=== PATIENT | male | born 1980 | race Two or more races ===

== ENCOUNTER 2021-08-27 09:09 | Outpatient (REF) | payer OTHER, SELFPAY ==
[2021-08-27 10:09] LABS: Estimated Average Glucose 105 mg/dL; Hemoglobin A1c % 5.3 %
[2021-08-27 10:15] LABS: Hematocrit 42.5 % (42.0-52.0); Hemoglobin 13.6 g/dl (14.0-18.0); Mean Corpuscular Hemoglobin 27.2 pg (27.0-33.0); Mean Platelet Volume 11.4 fL (9.4-12.4); Platelet Count 222 X10*3/uL (160-400); Red Cell Distribution Width 13.1 % (11.0-16.0); White Blood Count 5.9 X10*3/uL (4.8-10.8)
[2021-08-27 10:27] LABS: Alanine Aminotransferase 78 U/L (0-40); Albumin Level 4.4 g/dL (3.5-5.0); Alkaline Phosphatase 75 U/L (39-117); Anion Gap 10 (12-20); Aspartate Amino Transferase 32 U/L (5-37); Bilirubin Total 0.9 mg/dL (0.0-1.0); Blood Urea Nitrogen 13 mg/dL (9-16); Calcium 9.6 mg/dL (8.4-10.2); Carbon Dioxide 25 mmol/L (22-29); Chloride 109 mmol/L (96-108); Cholesterol 172 mg/dL; Estimated Glomerular Filt Rate > 60; Glucose Fasting 90 mg/dL (60-99); HDL Cholesterol 55 mg/dL; Iron 98 mcg/dL (45-160); LDL Cholesterol Calculated 108 mg/dl; Percent Iron Saturation 37 % (15-50); Potassium 4.2 mmol/L (3.3-5.1); Sodium 140 mmol/L (135-145); Total Iron Binding Capacity 263 mcg/dL (228-428); Total Protein 7.2 g/dL (6.5-8.0); Triglycerides 48 mg/dL; Unsaturated Iron Binding 165 ug/dL
[2021-08-27 10:51] LABS: TSH reflex Free T4 0.89 uIU/mL (0.32-4.0)
[2021-08-27 11:54] LABS: Appearance Urine CLEAR; Color Urine YELLOW; Glucose Urine UA NEG (NEG); Leukocyte Esterase Urine NEG (NEG); Nitrite Urine NEG (NEG); PH 5.5 (5.0-8.0); Specific Gravity - Urine >= 1.030 (1.005-1.025); UACC Culture Trigger NO; Urine Blood TRACE (NEG); Urine Ketones NEG (NEG); Urine Protein NEG (NEG-TRACE)
[2021-08-27 12:34] LABS: RBC Urine 0-2 /HPF (0); WBC Urine 0 /HPF (0-4)
[2021-08-27 12:35] LABS: Mucus Urine TRACE /LPF; Squamous Epithelial Cell Urine TRACE /LPF
== END 2021-08-27 09:10 | disposition home or self-care (01) ==
LOC: HO.LAB 09:09
PROVIDERS: PCP Physician Assistant; Visit Provider Physician Assistant
DX: R30.0 Dysuria (principal); R31.29 Other microscopic hematuria; D50.9 Iron deficiency anemia, unspecified; R53.83 Other fatigue; Z13.1 Encounter for screening for diabetes mellitus; Z13.220 Encounter for screening for lipoid disorders; Z13.29 Encounter for screening for other suspected endocrine disorder
CPT/HCPCS: 36415; 80053; 80061; 81001; 82306; 83036; 83540; 84443; 85027

== ENCOUNTER 2022-10-14 09:09 | Outpatient (REF) | payer OTHER, SELFPAY ==
[2022-10-14 10:03] LABS: Appearance Urine Turbid; Color Urine Yellow; Glucose Urine UA Negative (Negative); Leukocyte Esterase Urine Negative (Negative); Nitrite Urine Negative (Negative); Specific Gravity - Urine >= 1.030 (1.005-1.025); Urine Blood Negative (Negative); Urine Ketones Negative (Negative); Urine Protein Negative (Neg-Trace)
[2022-10-14 10:37] LABS: Hematocrit 44.1 % (42.0-52.0); Hemoglobin 14.2 g/dl (14.0-18.0); Mean Corpuscular HGB Conc 32.2 g/dl (31.0-36.0); Mean Corpuscular Hemoglobin 27.5 pg (27.0-33.0); Mean Corpuscular Volume 85.5 fL (80.0-98.0); Mean Platelet Volume 11.6 fL (9.4-12.4); Platelet Count 229 X10*3/uL (160-400); Red Blood Count 5.16 X10*6/uL (4.60-5.80); Red Cell Distribution Width 13.2 % (11.0-16.0); White Blood Count 6.2 X10*3/uL (4.8-10.8)
[2022-10-14 11:21] LABS: Alanine Aminotransferase 30 U/L (0-40); Albumin Level 4.3 g/dL (3.5-5.0); Alkaline Phosphatase 70 U/L (39-117); Anion Gap 13 (12-20); Aspartate Amino Transferase 18 U/L (5-37); Blood Urea Nitrogen 15 mg/dL (9-16); Calcium 9.1 mg/dL (8.4-10.2); Carbon Dioxide 24 mmol/L (22-29); Chloride 107 mmol/L (96-108); Estimated Glomerular Filt Rate > 60; Glucose Fasting 80 mg/dL (60-99); Potassium 4.5 mmol/L (3.3-5.1); Sodium 139 mmol/L (135-145); Total Protein 7.1 g/dL (6.5-8.0)
[2022-10-14 11:27] LABS: TSH reflex Free T4 0.81 uIU/mL (0.32-4.0); Vitamin D 25-OH Total 23.3 ng/mL (>30)
== END 2022-10-14 09:10 | disposition home or self-care (01) ==
LOC: HO.LAB 09:09
PROVIDERS: PCP Physician Assistant; Visit Provider Physician Assistant
DX: Z13.29 Encounter for screening for other suspected endocrine disorder (principal); R31.29 Other microscopic hematuria; R53.83 Other fatigue; R30.0 Dysuria
CPT/HCPCS: 36415; 80053; 81003; 82306; 84443; 85027

== ENCOUNTER 2023-09-11 15:40 | Outpatient (AMB) | payer OTHER, SELFPAY ==
[2023-09-11 16:10] VITALS: BP 112/84; PULSE 78; RESP 17; O2SAT 99; BMI 25.3
--- NOTE | 2023-09-11 16:10 | MHC.PC.OV ---
Vital Signs 09/11/23 16:10 Height 5 ft 7.32 in Weight 163 lb 4 oz BMI 25.3 BP 112/84 Blood Pressure Location Lt brachial Position Sitting Respiration 17 Pulse 78 Pulse Source Pulse Oximeter Pulse Oximetry (%) 99 Oxygen Delivery Method Room Air Intake Visit Reasons: RT shoulder pain Intake Note: The patient has come in regarding persistent right shoulder pain experienced over the past three weeks. Broke Beater Required: No Accompanied by: Self / Same As Patient Allergies No Known Allergies Allergy (Verified 09/11/23 16:47) Medication List - Last Reconciled 09/11/23 by Davion Casas PA-C No Known Home Meds Tobacco use date assessed: 09/11/23 Dental Screening Dental Screen Date: 09/11/23 Did you have a dental visit in the last 12 months?: Yes Did you have a dental problem in the last 6 months where you did not have access to dental care?: No Was dental information given to patient?: Patient has dentist HPI RT shoulder pain HPI Details Patient is a 43 year male here today problem visit. Has been experiencing shoulder pain with certain movements over the last year.. He reports he has been more physically active at work and noted his right shoulder pain has been worse over the last 2 weeks. He does not use any NSAIDs or Tylenol. He can not recall any acute injury to his right shoulder. [facility] Surgical History No pertinent past surgical history Family History Father No problems noted. Mother Stroke Diabetes Lung cancer ESRD (end stage renal disease) Social History Housing: House Alcohol intake: current Alcohol intake frequency: holidays/special occasions only Alcohol type: beer Patient Tobacco Use Status: Never used Tobacco Tobacco use type: Cigarette e-Cigarette/Vaping Use: Never Used Second Hand Smoke Exposure: No service: No Current occupational status: employed Current occupation: [employer] Current occupational exposures/hazards: No Cognitive needs: No Hearing needs: No Vision needs: No Questionnaire PHQ-9 Over the last 2 weeks, how often have you been bothered by any of the following problems? 1. Little interest or pleasure in doing things: not at all 2. Feeling down, depressed, or hopeless: not at all 3. Trouble falling or staying asleep, or sleeping too much: not at all 4. Feeling tired or having little energy: not at all 5. Poor appetite or overeating: not at all 6. Feeling bad about yourself - or that you are a failure or have let yourself or your family down: not at all 7. Trouble concentrating on things, such as reading the newspaper or watching television: not at all 8. Moving or speaking so slowly that other people could have noticed. Or the opposite - being so fidgety or restless that you have been moving around a lot more than usual: not at all 9. Thoughts that you would be better off or of hurting yourself in some way: not at all Total score: 0 Depression Screening Interpretation: Negative Depression Screening Done: Yes 26519 - PHQ-9 Billing: Yes Source: Developed by Drs. Remy Cotto, Nora Brown, Sabas Myers and colleagues, with an educational es from [email or web address]. Thrive Questionnaire Date Thrive assessed: 09/11/23 I am a: Patient What is your living situation today?: I have a steady place to live Within the past 12 months, did the food you bought not last and you didn't have the money to get more?: Never true Within the past 12 months, did you worry whether your food would run out before you got money to buy more?: Never true Do you have trouble paying for medicines?: No Do you have trouble getting transportation to medical appointments?: No Do you have trouble paying your heating and electricity bill?: No Do you have trouble taking care of your child, family member or friend?: No Do you have trouble with day-to-day activities such as bathing, preparing meals, shopping, managing finances, etc.?: No Are you currently unemployed and looking for a job?: No Are you interested in more education?: No Please select the resources that you would like help with: None Currently or been in a relationship where the following occur: no concerns reported THRIVE Score: 0 AUDIT C Alcohol Use Questionnaire (AUDIT-C) 1. How often do you have a drink containing alcohol?: Monthly or less 2. How many drinks containing alcohol do you have on a typical day when you are drinking?: 1 or 2 3. How often do you have six or more drinks on one occasion?: Never Total Score: 1 CHRISTOPHER-7 AMB Questionnaire CHRISTOPHER-7 Date CHRISTOPHER - 7 assessed: 09/11/23 Feeling nervous, anxious, or on edge: 0 = Not at all Not being able to stop or control worryin = Not at all Worrying too much about different things: 0 = Not at all Trouble relaxin = Not at all Being so restless that it is hard to sit still: 0 = Not at all Becoming easily annoyed or irritable: 0 = Not at all Feeling afraid as if something awful might happen: 0 = Not at all Total CHRISTOPHER-7 score (0-4 normal; 5-9 mild; 10-14 moderate; 15-21 severe): 0 Source: Developed by Drs. Remy Cotto, Nora Brown, Sabas Myers and colleagues, with an educational es from [email or web address]. CHRISTOPHER-7 Assessment Billing CHRISTOPHER-7 Assessment Tool: CHRISTOPHER-7 Assessment 04022 Review of Systems Const Denies headache(s) Eyes Denies loss of vision ENT Denies vertigo, Denies dizziness, Denies headache(s) and Denies sore throat Card Denies chest pain, Denies leg edema and Denies lightheadedness Resp Denies cough, Denies hemoptysis and Denies wheezing GI Denies abdominal pain, Denies melena, Denies constipation, Denies diarrhea and Denies vomiting Denies dysuria, Denies urinary frequency and Denies urinary urgency Musc Denies arthralgias, Denies joint swelling, Denies numbness and Denies tingling Neuro Denies Abnormal speech present, Denies behavioral changes, Denies vertigo, Denies dizziness, Denies headache(s), Denies loss of vision, Denies memory loss, Denies numbness and Denies tingling Psych Denies anxiety, Denies behavioral changes, Denies depression, Denies memory loss and Denies panic attacks Stephen/Lymph Denies easy bleeding and Denies easy bruising Aller/Immun Denies wheezing Physical exam (Primary Care) Vital Signs: Last Vital Signs Pulse 78 09/11/23 16:10 Resp 17 09/11/23 16:10 BP 112/84 09/11/23 16:10 Pulse Ox 99 09/11/23 16:10 Oxygen Delivery Method Room Air 09/11/23 16:10 BMI result Body Mass Index 25.3 Tobacco/Smoking Status: Tobacco use Status Tobacco use date assessed 09/11/23 09/11/23 16:19 Patient Tobacco Use Status Never used Tobacco 09/11/23 16:11 Tobacco use type Cigarette 09/11/23 16:11 e-Cigarette/Vaping Use Never Used 09/11/23 16:11 PHQ-9: PHQ-9 Score PHQ-9: Total score 0 09/11/23 16:19 Depression Screening Interpretation: Negative Thrive Assessment: Date of Thrive Assessment Date Thrive assessed 09/11/23 09/11/23 16:19 Currently or been in a relationship where the following occur: no concerns reported Const General: healthy appearing, no acute distress, alert and awake Nutritional Appearance: well nourished Orientation/consciousness: oriented to person, oriented to place and oriented to time HENMT Ears: TM's normal bilaterally General nose exam: Normal nasal mucous membranes and turbinates present Eyes Conjunctivae: conjunctivae normal Sclerae: sclerae normal Pupils: Equal, round and reactive pupils present Neck Neck: Yes no lymphadenopathy and Yes no JVD Thyroid: Thyroid normal Carotids: no bruits Resp Effort & Inspection: normal respiratory effort and not tachypneic Auscultation: no crackles, no rales, no rhonchi and no wheezes Cardio Rate: regular rate Rhythm: regular rhythm Heart sounds: no murmurs and normal S1 and S2 GI Palpation (GI): Soft to palpation, nontender, no hepatomegaly and no splenomegaly Auscultation: normal bowel sounds Skin General skin exam: no rashes or lesions noted and dry skin Neuro General: oriented to person, oriented to place and oriented to time Cranial nerves: Yes Equal, round and reactive pupils present Speech: No Abnormal speech present Gait exam (Neuro): Normal gait present Motor exam (neuro): no tremor noted Extrem Other: RIGHT SHOULDER: FULL RANGE OF MOTION NOTED, NEGATIVE EMPTY CAN, NEGATIVE CHILDS TEST. PAIN REPORTED IN THE ANTERIOR ASPECT OF RIGHT SHOULDER WITH ADDUCTION AND ABDUCTION Right upper extremity: full ROM Left upper extremity: full ROM Right lower extremity: full ROM; no edema Left lower extremity: full ROM; no edema Psych Mental Status: mental status grossly normal Speech and movement: Normal speech and movement present Affect: normal affect Attitude: cooperative Thought process: Normal thought process present Assessment and Plan Assessment & Plan (1) Tendinopathy of right shoulder: Code(s): M67.911 - Unspecified disorder of synovium and tendon, right shoulder Plan: Patient reports continued right shoulder pain upon certain movements over the last year. He has noted the pain to be more evident over the last 3 weeks. He can not recall acute injury to his right shoulder. Has full range of motion though does feel some pain upon induction and flexion of the shoulder. Could be shoulder impingement syndrome Will likely benefit from physical therapy, will send for x-ray. Will try for MRI to rule out a rotator cuff tendon issue versus labral tear. Orders: Orders XR shoulder RT min 2V Today M67.911 - Unspecified disorder of synovium and tendon, right shoulder MR shoulder RT wo con Today M67.911 - Unspecified disorder of synovium and tendon, right shoulder PT Evaluation and Treatment Today M67.911 - Unspecified disorder of synovium and tendon, right shoulder Referrals Orthopedics Referral M67.911 - Unspecified disorder of synovium and tendon, right shoulder Coding Level of Care Code Est Pt Level 3 (50020) Diagnoses Tendinopathy of right shoulder M67.911 Additional Codes CHRISTOPHER-7 Assessment Billing - CHRISTOPHER-7 Assessment Tool: CHRISTOPHER-7 Assessment 70724 ([id number])
== END 2023-09-11 16:59 | disposition home or self-care (01) ==
PROVIDERS: PCP Physician Assistant; Visit Provider Physician Assistant
DX: M67.911 Unspecified disorder of synovium and tendon, right shoulder (principal)
CPT/HCPCS: 99213

== ENCOUNTER 2023-09-11 17:00 | Outpatient (REF) | payer OTHER, SELFPAY ==
--- NOTE | ~2023-09-11 | XR_ITS ---
EXAMINATION: XR SHOULDER, RIGHT CLINICAL INFORMATION: Unspecified order of synovium and tendon of right shoulder. COMPARISON: None available. TECHNIQUE: 4 views of the right shoulder. FINDINGS: Hypertrophy along the lateral inferior aspect of the acromion with possible overlying ossicle/calcification. Mild degenerative changes in the acromioclavicular joint with joint space narrowing and hypertrophic change. Glenohumeral alignment maintained. XR/XR shoulder RT min 2V IMPRESSION: [id number]-va-qenyihtu degenerative changes.
== END 2023-09-11 17:01 | disposition home or self-care (01) ==
LOC: HO.XRAY 17:00
PROVIDERS: PCP Physician Assistant; Visit Provider Physician Assistant
DX: M67.911 Unspecified disorder of synovium and tendon, right shoulder (principal)
CPT/HCPCS: 73030

== ENCOUNTER 2023-09-25 14:50 | Outpatient (AMB) | payer OTHER, SELFPAY ==
[2023-09-25 14:54] VITALS: BMI 25.5
--- NOTE | 2023-09-25 14:54 | A.OFFVIS_ITS ---
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 Patient reports it has been going on for about 1 year but has gotten worse over the past month. His pain is a 7 on the 1-10 pain scale. He has had injections in the past which gave him minimal relief. He has also done physical therapy exercises which aggravated his pain. He reports intermittent weakness when lifting his right above shoulder height. Allergies No Known Allergies Allergy (Verified 09/25/23 15:00) Medication List - Last Reconciled 09/26/23 by Sincere Decker MD No Known Home Meds [facility] Surgical History No pertinent past surgical history Family History Father No problems noted. Mother Stroke Diabetes Lung cancer ESRD (end stage renal disease) Social History (Updated 09/25/23 @ 15:01 by Larisa Ferraro CMA) Housing: House Alcohol intake: current Alcohol intake frequency: holidays/special occasions only Alcohol type: beer Patient Tobacco Use Status: Never used Tobacco Tobacco use type: Cigarette e-Cigarette/Vaping Use: Never Used Second Hand Smoke Exposure: No service: No Current occupational status: employed Current occupation: [employer] , Right hand dominate Current occupational exposures/hazards: No Cognitive needs: No Hearing needs: No Vision needs: No Physical Exam Vital Signs: BMI result Body Mass Index 25.5 Const Other: Well-nourished well-developed very friendly male awake alert and oriented x3 in no acute distress Extrem Other: Bilateral lower extremity examination shows good capillary refill, no skin lesions noted, normal sensation light touch Right shoulder examination shows decreased range of motion when compared to his left shoulder, 4+ out of 5 strength with supraspinatus testing, positive impingement signs, no instability Results Reviewed Results Reviewed: X-rays of the patient's right shoulder show severe acromioclavicular joint narrowing, a type 2 acromion, no acute bony abnormalities Assessment & Plan Assessment & Plan (1) Right shoulder pain: Code(s): M25.511 - Pain in right shoulder Qualifiers: Chronicity: chronic Qualified Code(s): M25.511 - Pain in right shoulder; G89.29 - Other chronic pain Plan Mr. Jean Gallagher presents with progressively worsening right shoulder pain and weakness possibly due to a full-thickness rotator cuff tear. I did recommend that the patient get an MRI of his right shoulder. He states that he already has an MRI scheduled via another provider's order. I will see him back once the MRI is completed to discuss the findings and treatment options. Thank you very much for asking me to see this very friendly gentleman. I spent 22 minutes in reviewing the patient's records and imaging studies, seeing the patient and documenting in the medical record. Coding Level of Care Code New Pt Level 2 (81700) Diagnoses Chronic right shoulder pain M25.511; G89.29 Chronicity: chronic
== END 2023-09-25 15:12 | disposition home or self-care (01) ==
PROVIDERS: PCP Physician Assistant; Visit Provider Orthopaedic Surgery
DX: M25.511 Pain in right shoulder (principal); G89.29 Other chronic pain
CPT/HCPCS: 99202

== ENCOUNTER → 2023-09-25 14:50 | Outpatient (BNVA) | payer OTHER, SELFPAY | PROVIDERS: PCP Physician Assistant; Visit Provider Orthopaedic Surgery ==

== ENCOUNTER 2023-10-03 17:16 | Outpatient (REF) | payer OTHER, SELFPAY ==
--- NOTE | ~2023-10-03 | MR_ITS ---
EXAMINATION: MR SHOULDER WITHOUT CONTRAST, RIGHT CLINICAL INFORMATION: Chronic right shoulder pain. Arthritis. Repetitive motion injury. COMPARISON: Right shoulder radiographs dated 09/11/2023. TECHNIQUE: MRI of the shoulder without contrast was performed on a high-field scanner. FINDINGS: ROTATOR CUFF: Mild supraspinatus and infraspinatus tendinosis. Distal supraspinatus bursal surface partial tearing measuring 0.9 x 0.9 cm. The articular surface tendon fibers remain intact. Adjacent degenerative cystic change within the greater tuberosity measuring up to 0.9 cm. No muscle atrophy or fatty infiltration. BICEPS: Trace fluid within the proximal long head biceps tendon sheath which could represent minimal tenosynovitis. No transverse tendon tear or tendon retraction. CORACOACROMIAL ARCH: The undersurface of the acromion is curved with moderate subacromial spurring. Bmaq-zu-nbknldum acromioclavicular osteoarthritis. Fluid and edema within the subacromial-subdeltoid bursa, consistent with mild bursitis. LABRUM/CAPSULE: Linear fluid signal within the undersurface of the posterosuperior and posterior labrum, consistent with nondisplaced undersurface tearing. Intact joint capsule. GLENOHUMERAL JOINT/MARROW: Minimal articular cartilage signal heterogeneity with tiny marginal osteophytes. Anterosuperior glenoid articular cartilage fissuring with minimal subchondral cystic change. MR/MR shoulder RT wo con IMPRESSION: 1. Mild supraspinatus and infraspinatus tendinosis. Distal supraspinatus bursal surface partial tearing measuring 0.9 x 0.9 cm. Degenerative cystic change within the adjacent greater tuberosity. 2. Trace fluid within the proximal long head biceps tendon sheath which could represent minimal tenosynovitis. No transverse tendon tear or tendon retraction. 3. Dpaz-fh-yhyesxby acromioclavicular osteoarthritis with moderate subacromial spurring. Mild subacromial-subdeltoid bursitis. 4. Nondisplaced undersurface tearing of the posterosuperior and posterior labrum. 5. Minimal glenohumeral arthrosis.
== END 2023-10-03 17:17 | disposition home or self-care (01) ==
LOC: HO.MRI 17:16
PROVIDERS: PCP Physician Assistant; Visit Provider Physician Assistant
DX: M67.911 Unspecified disorder of synovium and tendon, right shoulder (principal)
CPT/HCPCS: 73221

== ENCOUNTER 2023-10-09 14:28 | Outpatient (AMB) | payer OTHER, SELFPAY ==
--- NOTE | 2023-10-09 14:30 | MHC.OFFVIS ---
Intake Vital Signs 10/09/23 14:30 Height 5 ft 7 in Intake Visit Reasons: OV-MRI review Right shoulder Intake Note: Stew is a 43 year old male who presents for an MRI review of his Right shoulder. Patient reports he has no changes. The patient describes his pain as sharp in nature. Most of the pain is along the lateral and anterior aspects of his shoulder. Patient states that he is not able to shoot a basketball because of his pain. He has increased pain when lifting his hand overhead. Allergies No Known Allergies Allergy (Verified 10/09/23 14:32) Medication List - Last Reconciled 10/09/23 by Sincere Decker MD No Known Home Meds [facility] Surgical History No pertinent past surgical history Family History Father No problems noted. Mother Stroke Diabetes Lung cancer ESRD (end stage renal disease) Social History Housing: House Alcohol intake: current Alcohol intake frequency: holidays/special occasions only Alcohol type: beer Patient Tobacco Use Status: Never used Tobacco Tobacco use type: Cigarette e-Cigarette/Vaping Use: Never Used Second Hand Smoke Exposure: No service: No Current occupational status: employed Current occupation: [employer] , Right hand dominate Current occupational exposures/hazards: No Cognitive needs: No Hearing needs: No Vision needs: No Physical Exam Const Other: Well-nourished well-developed very friendly male awake alert and oriented x3 in no acute distress Extrem Other: Bilateral upper extremity examination shows good capillary refill, no skin lesions noted, normal sensation light touch Right shoulder examination shows slightly decreased range of motion when compared to his left shoulder, 4/5 strength with supraspinatus testing, positive impingement signs, tenderness over his acromioclavicular joint Results Reviewed Results Reviewed: MRI of the patient's right shoulder shows a type 2 acromion, acromioclavicular joint narrowing, signal change his supraspinatus tendon consistent with a high-grade partial-thickness tear versus a small full-thickness tear, possible tearing of the labrum Assessment & Plan Assessment & Plan (1) Tendinopathy of right shoulder: Code(s): M67.911 - Unspecified disorder of synovium and tendon, right shoulder Plan Mr. Lisa Gallagher presents with right shoulder pain due to impingement syndrome, a high-grade partial-thickness tear versus possible small full-thickness rotator cuff tear as well as possible tearing of his labrum. I had a lengthy discussion with the patient regarding the treatment options. At this point the patient has failed continued non operative treatments. Because of the possibility of a labral tear and need for repair as well as potential faster recovery from an arthroscopic procedure versus an open procedure I will have him evaluated by Dr. Aguilar. The patient will continue with his activity modifications in the meantime. Feel free to call me at any time should questions regarding his orthopedic management arise. I spent 22 minutes in reviewing the patient's records and imaging studies, seeing the patient and documenting in the medical record. Coding Level of Care Code Est Pt Level 2 (08096) Diagnoses Tendinopathy of right shoulder M67.911
== END 2023-10-09 14:45 | disposition home or self-care (01) ==
PROVIDERS: PCP Physician Assistant; Visit Provider Orthopaedic Surgery
DX: M67.911 Unspecified disorder of synovium and tendon, right shoulder (principal)
CPT/HCPCS: 99213

== ENCOUNTER → 2023-10-09 14:28 | Outpatient (BNVA) | payer OTHER, SELFPAY | PROVIDERS: PCP Physician Assistant; Visit Provider Orthopaedic Surgery ==

== ENCOUNTER 2023-10-18 14:22 | Outpatient (AMB) | payer OTHER, SELFPAY ==
--- NOTE | 2023-10-18 14:34 | MHC.OFFVIS ---
Intake Vital Signs 10/18/23 14:35 Height 5 ft 7 in Weight 163 lb BMI 25.5 Intake Visit Reasons: OV - Right Shoulder Labral Tear - Discuss Surgery Intake Note: Stew is a 43 year old right hand dominant male who presents for a follow up of his right shoulder labral tear. He was seen with Dr. Decker for an MRI review who referred him to Dr. Aguilar for surgical discussion. The patient describes his pain as sharp in nature. Most of the pain is along the lateral and anterior aspects of his shoulder. Patient states that he is not able to shoot a basketball because of his pain. He has increased pain when lifting his hand overhead. Allergies No Known Allergies Allergy (Verified 10/09/23 14:32) HPI OV - Right Shoulder Labral Tear - Discuss Surgery HPI Details Stew is a 43 year old male who presents for a follow up of his right shoulder labral tear. He was seen with Dr. Decker for an MRI review who referred him to Dr. Aguilar for surgical discussion. The patient describes his pain as sharp in nature. Most of the pain is along the lateral and anterior aspects of his shoulder. Patient states that he is not able to shoot a basketball because of his pain. He has increased pain when lifting his hand overhead and wehn reaching. 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 He has mostly anterior shoulder pain. [facility] Surgical History No pertinent past surgical history Family History Father No problems noted. Mother Stroke Diabetes Lung cancer ESRD (end stage renal disease) Social History Housing: House Alcohol intake: current Alcohol intake frequency: holidays/special occasions only Alcohol type: beer Patient Tobacco Use Status: Never used Tobacco Tobacco use type: Cigarette e-Cigarette/Vaping Use: Never Used Second Hand Smoke Exposure: No service: No Current occupational status: employed Current occupation: [employer] , Right hand dominate Current occupational exposures/hazards: No Cognitive needs: No Hearing needs: No Vision needs: No Physical Exam Vital Signs: BMI result Body Mass Index 25.5 Const General: cooperative, healthy appearing, no acute distress and well groomed Orientation/consciousness: oriented to person and oriented to place HEENT Head: Yes normal to inspection, Yes normocephalic and Yes atraumatic Eyes General: appearance normal, both eyes and all related structures Alignment and Position: alignment normal Conjunctivae: conjunctivae normal EOM: EOMs intact bilaterally Neck Neck: Yes normal visual inspection and Yes trachea midline Resp Other: No rerpiratory distress Effort & Inspection: normal respiratory effort and able to speak in complete sentences Cardio Other: Palpable radial pulse with no appreciable rythmic abnormalities GI Other: No abdominal distension Back/Spine/Pelvis Cervical Spine: normal cervical lordosis and cervical ROM normal Skin General skin exam: no rashes or lesions noted Neuro General: oriented to person, oriented to place and gait normal Extrem Other: Full ROM right shoulder (45/90/130/T10) Neg EC/Lift off/Hawkin's/Neer +Albemarle's TTP proximal biceps groove ( this most closely reproduces his pain). Results Reviewed Results Reviewed: I personally reviewed the MR images. IMPRESSION: 1. Mild supraspinatus and infraspinatus tendinosis. Distal supraspinatus bursal surface partial tearing measuring 0.9 x 0.9 cm. Degenerative cystic change within the adjacent greater tuberosity. 2. Trace fluid within the proximal long head biceps tendon sheath which could represent minimal tenosynovitis. No transverse tendon tear or tendon retraction. 3. Edez-gn-nzmsouip acromioclavicular osteoarthritis with moderate subacromial spurring. Mild subacromial-subdeltoid bursitis. 4. Nondisplaced undersurface tearing of the posterosuperior and posterior labrum. 5. Minimal glenohumeral arthrosis. Assessment & Plan Assessment & Plan (1) Tendinopathy of right shoulder: Code(s): M67.911 - Unspecified disorder of synovium and tendon, right shoulder Plan: This is a 43 yo M with right shoulder pain. After reviewing his MRI and examining him I suspect this is biceps related pain. I would recommend an U?S guided injection of the proximal biceps in the groove. I discussed this with him. I will see after this injection. Orders: Referrals Pain Management Referral M75.21 - Bicipital tendinitis, right shoulder Coding Level of Care Code Est Pt Level 4 (85194) Diagnoses Tendinopathy of right shoulder M67.911
[2023-10-18 14:35] VITALS: BMI 25.5
== END 2023-10-18 17:00 ==
PROVIDERS: PCP Physician Assistant; Visit Provider Orthopaedic Surgery
DX: M67.911 Unspecified disorder of synovium and tendon, right shoulder (principal)
CPT/HCPCS: 99214

== ENCOUNTER → 2023-10-18 14:22 | Outpatient (BNVA) | payer OTHER, SELFPAY | PROVIDERS: PCP Physician Assistant; Visit Provider Orthopaedic Surgery ==

== ENCOUNTER 2023-11-02 08:31 | Outpatient (AMB) | payer OTHER, SELFPAY ==
--- NOTE | 2023-11-02 08:52 | A.OFFVIS_ITS ---
Intake Vital Signs 11/02/23 08:54 Height 5 ft 7 in Weight 163 lb BMI 25.5 BP 134/81 Blood Pressure Location Lt brachial Position Sitting Respiration 14 Pulse 80 Pulse Source Pulse Oximeter Pulse Oximetry (%) 97 Oxygen Delivery Method Room Air Intake Visit Reasons: Bicipital groove injection Allergies No Known Allergies Allergy (Verified 11/02/23 08:55) Medication List - Last Reconciled 11/02/23 by Jing Mccall LPN No Known Home Meds HPI Bicipital groove injection HPI Details 43-year-old male who presents today to t he office for a bicipital groove injection. Denies any recent cough, cold, infection, fever or other significant changes in medical history since last office visit. The patient was referred by Dr. Aguilar for a bicipital groove injection today. 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 Pain is described as 7/10 in intensity. His pain is worse with movement. His pain is localized to the right shoulder/arm region along the lateral and anterior aspects of his shoulder. He is unable to shoot basketball. He has increased pain when lifting his hand overhead and when reaching. 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 He has not done any physical therapy in the past. [facility] Surgical History No pertinent past surgical history Family History Father No problems noted. Mother Stroke Diabetes Lung cancer ESRD (end stage renal disease) Social History Housing: House Alcohol intake: current Alcohol intake frequency: holidays/special occasions only Alcohol type: beer Patient Tobacco Use Status: Never used Tobacco Tobacco use type: Cigarette e-Cigarette/Vaping Use: Never Used Second Hand Smoke Exposure: No service: No Current occupational status: employed Current occupation: [employer] , Right hand dominate Current occupational exposures/hazards: No Cognitive needs: No Hearing needs: No Vision needs: No Review of Systems Const All systems reviewed & are unremarkable except as noted in HPI and below Physical Exam Vital Signs: Last Vital Signs Pulse 80 11/02/23 08:54 Resp 14 11/02/23 08:54 BP 134/81 11/02/23 08:54 Pulse Ox 97 11/02/23 08:54 Oxygen Delivery Method Room Air 11/02/23 08:54 BMI result Body Mass Index 25.5 General: Appears afebrile. Alert and oriented. Mood and affect appropriate. Follows and participates in conversation appropriately. Respiratory effort is unlabored. Able to transition from sit to stand unassisted. Ambulates with bilaterally normal heel strike and toe off. Tenderness overlying the bicipital tendon. Office Procedures Joint Injection/Drain Joint Injection/Drain Details: Right bicipital groove injection, ultrasound guided. Primary Site: right shoulder Prep: site was prepped using sterile technique Injected: 40 mg of, Kenalog, with 3 mL of (0.25% ropivacaine) and other (bicipital groove muscle) Approach Used: anterior Procedure: The patient tolerated the procedure well Coding Details: An ultrasound image of the injection was taken [place] [address] - Bicipital Groove Injection (Right, US guided) Procedure code (CPT) selection complete Results Reviewed Results Reviewed: 10/03/23: MR SHOULDER WITHOUT CONTRAST, RIGHT FINDINGS: ROTATOR CUFF: Mild supraspinatus and infraspinatus tendinosis. Distal supraspinatus bursal surface partial tearing measuring 0.9 x 0.9 cm. The articular surface tendon fibers remain intact. Adjacent degenerative cystic change within the greater tuberosity measuring up to 0.9 cm. No muscle atrophy or fatty infiltration. BICEPS: Trace fluid within the proximal long head biceps tendon sheath which could represent minimal tenosynovitis. No transverse tendon tear or tendon retraction. CORACOACROMIAL ARCH: The undersurface of the acromion is curved with moderate subacromial spurring. Bams-qz-[id number] acromioclavicular osteoarthritis. Fluid and edema within the subacromial-subdeltoid bursa, consistent with mild bursitis. LABRUM/CAPSULE: Linear fluid signal within the undersurface of the posterosuperior and posterior labrum, consistent with nondisplaced undersurface tearing. Intact joint capsule. GLENOHUMERAL JOINT/MARROW: Minimal articular cartilage signal heterogeneity with tiny marginal osteophytes. Anterosuperior glenoid articular cartilage fissuring with minimal subchondral cystic change. IMPRESSION: 1. Mild supraspinatus and infraspinatus tendinosis. Distal supraspinatus bursal surface partial tearing measuring 0.9 x 0.9 cm. Degenerative cystic change within the adjacent greater tuberosity. 2. Trace fluid within the proximal long head biceps tendon sheath which could represent minimal tenosynovitis. No transverse tendon tear or tendon retraction. 3. Zxwe-kn-ibogrmhz acromioclavicular osteoarthritis with moderate subacromial spurring. Mild subacromial-subdeltoid bursitis. 4. Nondisplaced undersurface tearing of the posterosuperior and posterior labrum. 5. Minimal glenohumeral arthrosis. Assessment & Plan Assessment & Plan (1) Biceps tendinitis of right shoulder: Code(s): M75.21 - Bicipital tendinitis, right shoulder Plan Patient is status post right bicipital groove injection, ultrasound guided. Patient tolerated procedure well and was discharged home in stable condition with discharge instructions. All questions were answered. If he does get good relief from the biceps tendon injection, if we can consider other interventional modalities for helping with the tendon issue other than steroids (prolotherapy/PNS/PRP), given the risk of tendon rupture with repeated steroid exposure. Scribed for Dr. Bradley by Don Jain, medical esthetician, on 11/02/2023. I, Dr. Bradley, have personally reviewed and agree with the information entered by the scribe. Coding Level of Care Code New Pt Level 4 (16106) Diagnoses Biceps tendinitis of right shoulder M75.21 CPT Codes Coding - Joint 1: 14876 - Bicipital Groove Injection ([id number])
[2023-11-02 08:54] VITALS: BP 134/81; PULSE 80; RESP 14; O2SAT 97; BMI 25.5
== END 2023-11-02 09:30 | disposition home or self-care (01) ==
PROVIDERS: PCP Physician Assistant; Visit Provider Internal Medicine
DX: M75.21 Bicipital tendinitis, right shoulder (principal)
CPT/HCPCS: 20550; 99204

== ENCOUNTER → 2023-11-02 08:31 | Outpatient (BNVA) | payer OTHER, SELFPAY | PROVIDERS: PCP Physician Assistant; Visit Provider Internal Medicine | DX: M75.21 Bicipital tendinitis, right shoulder (principal) | CPT/HCPCS: 20550; J2795; J3301 ==

== ENCOUNTER 2024-07-02 13:05 | Outpatient (AMB) | payer OTHER, SELFPAY ==
[2024-07-02 13:33] VITALS: BP 120/76; PULSE 78; O2SAT 98; BMI 25.9
--- NOTE | 2024-07-02 13:33 | A.OFFPC_ITS ---
Vital Signs 07/02/24 13:33 Height 5 ft 7 in Weight 165 lb 6 oz BMI 25.9 BP 120/76 Blood Pressure Location Lt brachial Position Sitting Pulse 78 Pulse Source Pulse Oximeter Pulse Oximetry (%) 98 Oxygen Delivery Method Room Air Intake Visit Reasons: Annual PE - see comments Intake Note: Patient is here today for a physical. [employer] Supervisor Required: No Accompanied by: Self / Same As Patient Allergies No Known Allergies Allergy (Verified 07/02/24 13:41) Medication List - Last Reconciled 07/02/24 by Davion Casas PA-C No Known Home Meds Tobacco use date assessed: 07/02/24 Dental Screening Dental Screen Date: 07/02/24 Did you have a dental visit in the last 12 months?: Yes Did you have a dental problem in the last 6 months where you did not have access to dental care?: No Was dental information given to patient?: Patient has dentist HPI Annual PE - see comments HPI Details Patient is a 44-year-old male here today for a routine annual physical.? Patient has neurofibromatosis type. Concern--> he continues to have fatigue daily. He reports he is very tired after he works. He does work 9-10 hour days and feels that his fatigue is due to his long work hours. Also reports he continues to have right shoulder pain. Did see orthopedic in passing an injection which temporarily gave him some relief though his pain has returned. Of note MRI in the spring showing tendinopathy of the rotator cuff and her labral tear. .. Vaccines up-to-date with tetanus vaccine, Declines COVID vaccine declines flu PFSH Surgical History No pertinent past surgical history Family History (Updated 07/02/24 @ 13:45 by Davion Casas PA-C) Father Dementia Mother Stroke Diabetes Lung cancer ESRD (end stage renal disease) Paternal Aunt Dementia Social History (Updated 07/02/24 @ 13:46 by Davion Casas PA-C) Housing: House Alcohol intake: current Alcohol intake frequency: holidays/special occasions only Alcohol type: beer Patient Tobacco Use Status: Never used Tobacco Tobacco use type: Cigarette e-Cigarette/Vaping Use: Never Used Second Hand Smoke Exposure: No service: No Current occupational status: employed Current occupation: [employer] , Right hand dominate Current occupational exposures/hazards: No Cognitive needs: No Hearing needs: No Vision needs: No Questionnaire PHQ-9 Over the last 2 weeks, how often have you been bothered by any of the following problems? 1. Little interest or pleasure in doing things: not at all 2. Feeling down, depressed, or hopeless: not at all 3. Trouble falling or staying asleep, or sleeping too much: not at all 4. Feeling tired or having little energy: more than half the days 5. Poor appetite or overeating: not at all 6. Feeling bad about yourself - or that you are a failure or have let yourself or your family down: not at all 7. Trouble concentrating on things, such as reading the newspaper or watching television: not at all 8. Moving or speaking so slowly that other people could have noticed. Or the opposite - being so fidgety or restless that you have been moving around a lot more than usual: not at all 9. Thoughts that you would be better off or of hurting yourself in some way: not at all Total score: 2 Depression Screening Interpretation: Negative Depression Screening Done: Yes 48278 - PHQ-9 Billing: Yes Source: Developed by Drs. Remy Cotto, Nora Brown, Sabas Myers and colleagues, with an educational es from [employer]. Thrive Questionnaire Date Thrive assessed: 07/02/24 I am a: Patient What is your living situation today?: I choose not to answer this question Within the past 12 months, did the food you bought not last and you didn't have the money to get more?: I choose not to answer this question Within the past 12 months, did you worry whether your food would run out before you got money to buy more?: I choose not to answer this question Do you have trouble paying for medicines?: No Do you have trouble getting transportation to medical appointments?: No Do you have trouble paying your heating and electricity bill?: No Do you have trouble taking care of your child, family member or friend?: No Do you have trouble with day-to-day activities such as bathing, preparing meals, shopping, managing finances, etc.?: No Are you currently unemployed and looking for a job?: No Are you interested in more education?: No Please select the resources that you would like help with: None Currently or been in a relationship where the following occur: I choose not to answer THRIVE Score: 0 AUDIT C Alcohol Use Questionnaire (AUDIT-C) 1. How often do you have a drink containing alcohol?: Monthly or less 2. How many drinks containing alcohol do you have on a typical day when you are drinking?: 1 or 2 3. How often do you have six or more drinks on one occasion?: Never Total Score: 1 CHRISTOPHER-7 AMB Questionnaire CHRISTOPHER-7 Date CHRISTOPHER - 7 assessed: 07/02/24 Feeling nervous, anxious, or on edge: 0 = Not at all Not being able to stop or control worryin = Not at all Worrying too much about different things: 0 = Not at all Trouble relaxin = Not at all Being so restless that it is hard to sit still: 0 = Not at all Becoming easily annoyed or irritable: 0 = Not at all Feeling afraid as if something awful might happen: 0 = Not at all Total CHRISTOPHER-7 score (0-4 normal; 5-9 mild; 10-14 moderate; 15-21 severe): 0 Source: Developed by Drs. Remy Cotto, Nora Brown, Sabas Myers and colleagues, with an educational es from [employer]. CHRISTOPHER-7 Assessment Billing CHRISTOPHER-7 Assessment Tool: CHRISTOPHER-7 Assessment 51438 Review of Systems Const Denies body aches, Denies chills, Denies excessive sweating, Reports fatigue, Denies fever(s), Denies headache(s) and Reports weakness Eyes Denies blurry vision ENT Denies dysphagia, Denies vertigo, Denies dizziness, Denies headache(s), Denies hearing loss and Denies tinnitus Card Denies chest pain, Denies chest pain with activity, Denies syncope, Denies irregular heart rhythm and Denies dyspnea Resp Denies chest congestion, Denies cough, Denies hemoptysis, Denies dyspnea and Denies wheezing GI Denies abdominal pain, Denies melena, Denies hematochezia, Denies coffee ground emesis, Denies dysphagia, Denies diarrhea, Denies nausea and Denies vomiting Denies difficulty urinating, Denies dysuria, Denies urinary frequency, Denies urinary hesitancy and Denies urinary urgency Musc Denies arthralgias, Denies limited range of motion, Denies muscle cramps and Denies muscle weakness Skin/Breast Denies rash and Denies skin ulcer Neuro Denies Abnormal speech present, Denies confusion, Denies vertigo, Denies dizziness, Denies syncope, Denies headache(s), Denies memory loss, Denies seizure-like activity and Reports weakness Psych Denies anxiety, Denies confusion, Denies depression, Denies memory loss, Denies panic attacks and Denies paranoia Endo Denies excessive sweating, Reports fatigue, Denies flushing, Denies polydipsia and Denies polyuria Aller/Immun Denies wheezing Physical exam (Primary Care) Vital Signs: Last Vital Signs Pulse 78 07/02/24 13:33 BP 120/76 07/02/24 13:33 Pulse Ox 98 07/02/24 13:33 Oxygen Delivery Method Room Air 07/02/24 13:33 BMI result Body Mass Index 25.9 Tobacco/Smoking Status: Tobacco use Status Tobacco use date assessed 07/02/24 07/02/24 13:36 Patient Tobacco Use Status Never used Tobacco 07/02/24 13:36 Tobacco use type Cigarette 07/02/24 13:36 e-Cigarette/Vaping Use Never Used 07/02/24 13:36 PHQ-9: PHQ-9 Score PHQ-9: Total score 2 07/02/24 13:36 Depression Screening Interpretation: Negative Thrive Assessment: Date of Thrive Assessment Date Thrive assessed 07/02/24 07/02/24 13:36 Currently or been in a relationship where the following occur: I choose not to answer Const General: cooperative, comfortable, no acute distress, alert and awake; No confusion Orientation/consciousness: oriented to person, oriented to place, patient oriented x3 and No confusion HENMT Head: Yes normocephalic Ears: external ears normal and TM's normal bilaterally Face and sinus: No sinus tenderness Mouth: Normal oral and palatal mucosa present and tongue normal Teeth and gingiva: dentition normal and gingiva normal Throat: Yes posterior oropharynx normal, Yes tonsils normal and Yes uvula midline Eyes Conjunctivae: conjunctivae normal Sclerae: sclerae normal Pupils: Equal, round and reactive pupils present EOM: EOMs intact bilaterally Direct Ophthalmoscopy: No no photophobia Neck Neck: Yes no lymphadenopathy, No tender and Yes no JVD Thyroid: Thyroid normal Carotids: no bruits Chest Chest palpation & inspection: no tenderness Resp Effort & Inspection: normal respiratory effort, no audible wheezes, not labored and no stridor Auscultation: no crackles, no rales, no rhonchi and no wheezes Cardio Jugular venous distension: no JVD Rate: regular rate, not bradycardic and not tachycardic Rhythm: regular rhythm Bruits: no carotid bruits Peripheral pulses: Peripheral pulses 2+ throughout GI Inspection: Yes normal to inspection, No abdominal wall ecchymosis and No visible herniation Palpation (GI): Soft to palpation, nontender, no guarding, not rigid and No hepatosplenomegaly present Auscultation: normoactive bowel sounds General: Yes no CVA tenderness Back/Spine/Pelvis Back: no CVA tenderness and No back tenderness Cervical Spine: cervical ROM normal Thoracic/Lumbar Spine: thoracic and lumbar spine normal to inspection, straight leg raise negative bilaterally, No thoraco-lumbar ROM limited and No lumbar spinal tenderness Skin Lesions: no lesions Rashes: no rashes Wounds: no wounds Neuro General: oriented to person, oriented to place, patient oriented x3, CN's II-XI intact bilaterally and No confusion Cranial nerves: Yes Equal, round and reactive pupils present and Yes Normal acc ommodation reflex present Cognition (Neuro): normal cognition Speech: No Abnormal speech present Gait exam (Neuro): Normal gait present Motor exam (neuro): 5/5 motor strength present throughout Extrem Right upper extremity: full ROM; no cyanosis Left upper extremity: full ROM; no cyanosis Right lower extremity: no edema Left lower extremity: no edema Psych Appearance: grossly normal Mental Status: mental status grossly normal Affect: normal affect Attitude: cooperative Thought process: Normal thought process present Office Procedures Flu Questionnaire Does the patient have a severe egg allergy?: No Immunizations Fluarix Triv [id number] (PF) 45 mcg (15 mcg x 3)/0.5 mL IM syringe Performing Provider: Davion Casas PA-C [facility] Documented (not given) by: CHRISTINA De Luna on 07/02/24 13:36 Reason Not Given: Patient Refused Coding Level of Care Code Est Pt Prev Care 40-64y(90247) Diagnoses Annual physical exam Z00.00 Tendinopathy of right shoulder M67.911 Fatigue, unspecified type R53.83 Fatigue type: unspecified Additional Codes CHRISTOPHER-7 Assessment Billing - CHRITSOPHER-7 Assessment Tool: CHRISTOPHER-7 Assessment 16200 ([id number]) PHQ-9 - 67962 - PHQ-9 Billing: Yes ([id number]) Assessment & Plan Assessment & Plan (1) Annual physical exam: Code(s): Z00.00 - Encounter for general adult medical examination without abnormal findings Category: Medical Plan: As per HPI (2) Tendinopathy of right shoulder: Code(s): M67.911 - Unspecified disorder of synovium and tendon, right shoulder Category: Medical Plan: Patient has a history of the tendinopathy of the right shoulder. Did get cortisone injection by Orthopedics that gave him temporary relief though pain is back. MRI of shoulder showing tendinopathy, labral tear and moderate arthritis. Will supply him with meloxicam to use on an as needed basis for arthritic type pain. (3) Fatigue: Code(s): R53.83 - Other fatigue Category: Medical Qualifiers: Fatigue type: unspecified Qualified Code(s): R53.83 - Other fatigue Plan: Patient continues to have chronic fatigue. He reports he feels weak all the time. He is very tired after work and does not have the energy to do any kind of exercise. He attributes this to his long work hours Orders: Orders UA CC w/rflx Micro + Cult Today R30.0 - Dysuria, R31.29 - Other microscopic hematuria Testosterone, Free/Total Today R53.83 - Other fatigue Influenza [id number] Immunization Today Z23 - Encounter for immunization Comprehensive [place]. Panel Fast Today Z13.1 - Encounter for screening for diabetes mellitus Complete Blood Count no Diff Today R53.83 - Other fatigue Vitamin D 25-OH Total Today R53.83 - Other fatigue IRON PROFILE Today D50.9 - Iron deficiency anemia, unspecified, R53.83 - Other fatigue Medications: New meloxicam 15 mg PO DAILY 30 days 30 tabs 0RF M67.911 - Unspecified disorder of synovium and tendon, right shoulder cholecalciferol (vitamin D3) 50 mcg PO DAILY 90 days 90 caps 1RF E55.9 - Vitamin D deficiency, unspecified, R53.83 - Other fatigue cholecalciferol (vitamin D3) 50 mcg PO DAILY 90 days 90 caps 1RF E55.9 - Vitamin D deficiency, unspecified, R53.83 - Other fatigue
== END 2024-07-02 15:41 | disposition home or self-care (01) ==
PROVIDERS: PCP Physician Assistant; Visit Provider Physician Assistant
DX: Z00.00 Encounter for general adult medical examination without abnormal findings (principal); M67.911 Unspecified disorder of synovium and tendon, right shoulder; R53.83 Other fatigue; Z23 Encounter for immunization

== ENCOUNTER → 2024-07-02 13:05 | Outpatient (BNVA) | payer OTHER, SELFPAY | PROVIDERS: PCP Physician Assistant; Visit Provider Physician Assistant | DX: Z00.00 Encounter for general adult medical examination without abnormal findings (principal); M67.911 Unspecified disorder of synovium and tendon, right shoulder; R53.83 Other fatigue | CPT/HCPCS: 90471; 96127 ==

== ENCOUNTER 2024-07-05 10:08 | Outpatient (REF) | payer OTHER, SELFPAY ==
[2024-07-05 10:45] LABS: Hematocrit 42.8 % (42.0-52.0); Hemoglobin 14.1 g/dl (14.0-18.0); Mean Corpuscular HGB Conc 32.9 g/dl (31.0-36.0); Mean Corpuscular Hemoglobin 27.7 pg (27.0-33.0); Mean Corpuscular Volume 84.1 fL (80.0-98.0); Mean Platelet Volume 10.9 fL (9.4-12.4); Platelet Count 233 X10*3/uL (160-400); Red Blood Count 5.09 X10*6/uL (4.60-5.80); Red Cell Distribution Width 13.3 % (11.0-16.0); White Blood Count 6.7 X10*3/uL (4.8-10.8)
[2024-07-05 11:00] LABS: Appearance Urine Clear; Color Urine Yellow; Glucose Urine UA Negative (Negative); Leukocyte Esterase Urine Negative (Negative); Nitrite Urine Negative (Negative); Specific Gravity - Urine >= 1.030 (1.005-1.025); Urine Blood Negative (Negative); Urine Ketones Negative (Negative); Urine Protein Negative (Neg-Trace)
[2024-07-05 11:37] LABS: Alanine Aminotransferase 47 U/L (0-40); Albumin Level 4.4 g/dL (3.5-5.0); Alkaline Phosphatase 60 U/L (39-117); Anion Gap 12 (12-20); Aspartate Amino Transferase 23 U/L (5-37); Bilirubin Total 0.8 mg/dL (0.0-1.0); Blood Urea Nitrogen 15 mg/dL (9-16); Calcium 9.4 mg/dL (8.4-10.2); Carbon Dioxide 27 mmol/L (22-29); Chloride 107 mmol/L (96-108); Estimated Glomerular Filt Rate > 60; Glucose Fasting 91 mg/dL (60-99); Iron 106 mcg/dL (45-160); Percent Iron Saturation 43 % (15-50); Sodium 142 mmol/L (135-145); Total Iron Binding Capacity 244 mcg/dL (228-428); Total Protein 7.4 g/dL (6.5-8.0); Unsaturated Iron Binding 138 ug/dL
[2024-07-05 11:43] LABS: Vitamin D 25-OH Total 29.7 ng/mL (>30)
[2024-07-10 16:03] LABS: Testosterone, Free 74.2 pg/mL (35.0-155.0); Testosterone, Total 482 ng/dL (250-1100)
== END 2024-07-05 10:09 | disposition home or self-care (01) ==
LOC: HO.LAB 10:08
PROVIDERS: PCP Physician Assistant; Visit Provider Physician Assistant
DX: R30.0 Dysuria (principal); R31.29 Other microscopic hematuria; Z13.1 Encounter for screening for diabetes mellitus; R53.83 Other fatigue; D50.9 Iron deficiency anemia, unspecified
CPT/HCPCS: 36415; 80053; 81003; 82306; 83540; 84402; 84403; 85027

== ENCOUNTER 2025-07-13 15:02 | Outpatient (AMB) | payer OTHER, SELFPAY ==
--- NOTE | 2025-07-13 15:22 | MHC.PC.OV ---
Vital Signs 07/13/25 15:23 Height 5 ft 7 in Weight 165 lb BMI 25.8 BP 116/78 Blood Pressure Location Lt brachial Position Sitting Respiration 18 Pulse 78 Pulse Source Pulse Oximeter Temp 97.7 F Temp Source Temporal Artery Scan Pulse Oximetry (%) 99 Oxygen Delivery Method Room Air Intake Visit Reasons: Annual exam Staff Reporter Required: No Accompanied by: Self / Same As Patient Allergies No Known Allergies Allergy (Verified 07/13/25 15:22) Medication List - Last Reconciled 07/13/25 by Danielle Serrano MD No Known Home Meds Tobacco use date assessed: 07/13/25 Dental Screening Dental Screen Date: 07/13/25 Did you have a dental visit in the last 12 months?: No Did you have a dental problem in the last 6 months where you did not have access to dental care?: Yes Was dental information given to patient?: Patient has dentist HPI HPI Comments History of Present Illness Details The patient is a 45 year old male presenting for an annual physical examination. His last annual exam was in June of the previous year. The patient has a history of neurofibromatosis and has been followed by dermatology. He notes a lesion that bothers him during haircuts, which developed after his last dermatology visit. He previously saw a rn chemical dependency for a lesion next to his mouth but he was told it would leave a deep scar. He also reports persistent right shoulder pain. He received a corticosteroid injection, which provided relief for about one month before the pain returned. An orthopedic surgeon had previously suggested surgery as a potential option. The pain is exacerbated when he straightens his arm. Past medical history is notable for chronic fatigue, for which his testosterone level was evaluated last year and found to be normal at 482. Lab results from June of last year showed a minimally elevated ALT of 47, while his CBC and CMP were otherwise within normal limits. The patient has not received any COVID-19 or influenza vaccinations. His last tetanus vaccination was in 2017 and is due in 2027. COUNTS INCLUDE 234 BEDS AT THE [facility] Surgical History No pertinent past surgical history Family History (Updated 07/02/24 @ 13:45 by Davion Casas PA-C) Father Dementia Mother Stroke Diabetes Lung cancer ESRD (end stage renal disease) Paternal Aunt Dementia Social History (Updated 07/02/24 @ 13:46 by Davion Casas PA-C) Housing: House Alcohol intake: current Alcohol intake frequency: holidays/special occasions only Alcohol type: beer Patient Tobacco Use Status: Never used Tobacco Tobacco use type: Cigarette e-Cigarette/Vaping Use: Never Used Second Hand Smoke Exposure: No service: No Current occupational status: employed Current occupation: [employer] , Right hand dominate Current occupational exposures/hazards: No Cognitive needs: No Hearing needs: No Vision needs: No Questionnaire PHQ-9 Over the last 2 weeks, how often have you been bothered by any of the following problems? 1. Little interest or pleasure in doing things: not at all 2. Feeling down, depressed, or hopeless: not at all 3. Trouble falling or staying asleep, or sleeping too much: not at all 4. Feeling tired or having little energy: not at all 5. Poor appetite or overeating: not at all 6. Feeling bad about yourself - or that you are a failure or have let yourself or your family down: not at all 7. Trouble concentrating on things, such as reading the newspaper or watching television: not at all 8. Moving or speaking so slowly that other people could have noticed. Or the opposite - being so fidgety or restless that you have been moving around a lot more than usual: not at all 9. Thoughts that you would be better off or of hurting yourself in some way: not at all Total score: 0 Depression Screening Interpretation: Negative Depression Screening Done: Yes Source: Developed by Drs. Remy Cotto, Nora Brown, Sabas Myers and colleagues, with an educational es from [employer]. Thrive Questionnaire Date Thrive assessed: 07/13/25 What is your living situation today?: I have a steady place to live Within the past 12 months, did the food you bought not last and you didn't have the money to get more?: Never true Within the past 12 months, did you worry whether your food would run out before you got money to buy more?: Never true Do you have trouble paying for medicines?: No Do you have trouble getting transportation to medical appointments?: No Do you have trouble paying your heating and electricity bill?: No Do you have trouble taking care of your child, family member or friend?: No Do you have trouble with day-to-day activities such as bathing, preparing meals, shopping, managing finances, etc.?: No Are you currently unemployed and looking for a job?: No Are you interested in more education?: No Currently or been in a relationship where the following occur: No concerns reported THRIVE Score: 0 AUDIT C Alcohol Use Questionnaire (AUDIT-C) 1. How often do you have a drink containing alcohol?: Monthly or less 2. How many drinks containing alcohol do you have on a typical day when you are drinking?: 1 or 2 3. How often do you have six or more drinks on one occasion?: Never Total Score: 1 CHRISTOPHER-7 AMB Questionnaire CHRISTOPHER-7 Date CHRISTOPHER - 7 assessed: 07/13/25 Feeling nervous, anxious, or on edge: 0 = Not at all Not being able to stop or control worryin = Not at all Worrying too much about different things: 0 = Not at all Trouble relaxin = Not at all Being so restless that it is hard to sit still: 0 = Not at all Becoming easily annoyed or irritable: 0 = Not at all Feeling afraid as if something awful might happen: 0 = Not at all Total CHRISTOPHER-7 score (0-4 normal; 5-9 mild; 10-14 moderate; 15-21 severe): 0 Source: Developed by Drs. Remy Cotto, Nora Brown, Sabas Myers and colleagues, with an educational es from [employer]. Review of Systems Const Details: Positives besides what was mentioned in HPI are in BOLD Constitutional: No Weight Change, No Fever, No Chills, No Night Sweats, No Fatigue, No Malaise ENT/Mouth: No Hearing Changes, No Ear Pain, No Nasal Congestion, No Sinus Pain, No Hoarseness, No sore throat, No Rhinorrhea, No Swallowing Difficulty Eyes: No Eye Pain, No Swelling, No Redness, No Foreign Body, No Discharge, No Vision Changes Cardiovascular: No Chest Pain, No SOB, No PND, No Dyspnea on Exertion, No Orthopnea, No Claudication, No Edema, No Palpitations Respiratory: No Cough, No Sputum, No Wheezing, No Smoke Exposure, No Dyspnea Gastrointestinal: No Nausea, No Vomiting, No Diarrhea, No Constipation, No Pain, No Heartburn, No Anorexia, No Dysphagia, No Hematochezia, No Melena, No Flatulence, No Jaundice Genitourinary: No Dysmenorrhea, No DUB, No Dyspareunia, No Dysuria, No Urinary Frequency, No Hematuria, No Urinary Incontinence, No Urgency, No Flank Pain, No Urinary Flow Changes, No Hesitancy Musculoskeletal: No Arthralgias, No Myalgias, No Joint Swelling, No Joint Stiffness, No Back Pain, No Neck Pain, No Injury History Skin: No Skin Lesions, No Pruritis, No Hair Changes, No Breast/Skin Changes, No Nipple Discharge Neuro: No Weakness, No Numbness, No Paresthesias, No Loss of Consciousness, No Syncope, No Dizziness, No Headache, No Coordination Changes, No Recent Falls Psych: No Anxiety/Panic, No Depression, No Insomnia, No Personality Changes, No Delusions, No Rumination, No SI/HI/AH/VH, No Social Issues, No Memory Changes, No Violence/Abuse Hx., No Eating Concerns Heme/Lymph: No Bruising, No Bleeding, No Transfusions History, No Lymphadenopathy Endocrine: No Polyuria, No Polydipsia, No Temperature Intolerance Physical exam (Primary Care) Vital Signs: Last Vital Signs Temp 97.7 F 07/13/25 15:23 Pulse 78 07/13/25 15:23 Resp 18 07/13/25 15:23 BP 116/78 07/13/25 15:23 Pulse Ox 99 07/13/25 15:23 Oxygen Delivery Method Room Air 07/13/25 15:23 BMI result Body Mass Index 25.8 Tobacco/Smoking Status: Tobacco use Status Tobacco use date assessed 07/13/25 07/13/25 15:24 Patient Tobacco Use Status Never used Tobacco 07/13/25 15:24 Tobacco use type Cigarette 07/13/25 15:24 e-Cigarette/Vaping Use Never Used 07/13/25 15:24 PHQ-9: PHQ-9 Score PHQ-9: Total score 0 07/13/25 15:24 Depression Screening Interpretation: Negative Thrive Assessment: Date of Thrive Assessment Date Thrive assessed 07/13/25 07/13/25 15:24 Currently or been in a relationship where the following occur: No concerns reported Const Other: Pertinent findings are in BOLD GENERAL APPEARANCE NAD, activity normal for age, well developed/ well nourished, no cyanosis, pallor, or diaphoresis. EYES lids/conjunctiva normal. EARS/NOSE/THROAT Mucous membranes moist, nares normal, lips/teeth normal uvula midline without oral pharyngeal erythema, exudate or swelling TMs normal bilaterally. No lymphangitis/lymphedema. HEAD/NECK normocephalic atraumatic, no facial trauma, neck is supple. RESPIRATORY respiratory effort normal, speaks in full sentences, no tripod position, no accessory muscle use. Lungs clear to auscultation without rhonchi, wheezes, rales CARDIAC Regular rate and rhythm, no edema. ABDOMINAL Soft, ND/NT. No evidence of fluid wave. No pulsatile masses on exam, rebound tenderness, Gray sign or pain over Mcburney's point. MUSCLES/EXTREMITIES No abnormal range of motion, no swelling. SKIN Warm, pink and dry. No rashes, dermatoses, petechiae or lesions. NF lesion on upper lip and on posterior scalp. NEUROLOGICAL Speech is clear and appropriate. Normal level of consciousness. Gait and coordination are normal. 5/5 strength in all extremities. PSYCH Normal mood and affect. Judgement/competence is appropriate Coding Level of Care Code Est Pt Prev Care 40-64y(07805) Diagnoses Chronic right shoulder pain M25.511; G89.29 Chronicity: chronic Annual physical exam Z00.00 Neurofibromatosis Q85.00 Time Spent (min) 30 Assessment & Plan Assessment & Plan (1) Right shoulder pain: Code(s): M25.511 - Pain in right shoulder Category: Medical Qualifiers: Chronicity: chronic Qualified Code(s): M25.511 - Pain in right shoulder; G89.29 - Other chronic pain Plan: - A referral for physical therapy will be placed. - The patient may also schedule a follow-up with his orthopedic surgeon. - Another injection is an option if the patient desires. (2) Annual physical exam: Code(s): Z00.00 - Encounter for general adult medical examination without abnormal findings Category: Medical Plan: CBC, CMP, Lipid panel, A1C, TSH w T4, vit D. Ordered. Shingles 2 doses when >50 yo. At 50. COVID: two doses. Declined. Pneumococcal: >50 yo. 18-49 with CKD, lung disease, weakened immune system, Heart disease, DM, cochlear implant. At 50. Flu vaccine: Declined. Tdap: every 10 years. Due in 2027. Colonoscopy: 45-75. Ordered. AAA: 65 -75. [address] lun - 80, NI. PSA: 50 -70 every two years. At 50. HIV: Declined. HCV: Declined. (3) Neurofibromatosis: Code(s): Q85.00 - Neurofibromatosis, unspecified Category: Medical Plan: - The patient was advised to schedule a follow-up appointment with his rn chemical dependency to evaluate a bothersome lesion. - He was informed that a new referral is likely not needed, but he should contact the office if one is required. Plan I discussed with the patient his ongoing right shoulder pain, noting that a prior injection offered only temporary relief. I recommended a referral for physical therapy and encourage him to follow up with his orthopedic surgeon. Regarding his neurofibromatosis, I advised him to schedule an appointment with his rn chemical dependency for a bothersome lesion; I informed him a new referral is likely not needed but to contact us if the specialist requires one. We discussed that he is now 45 and due for a screening colonoscopy, for which I will place a referral. I will be ordering general fasting labs, including a lipid panel, liver function tests, and screening for HIV and hepatitis C. We reviewed his immunization status, noting he declines COVID and flu vaccines and that his tetanus is up-to-date. He will follow up in one year for his next physical exam. Orders: Orders Comprehensive Met. Panel Today Z00.00 - Encounter for general adult medical examination without abnormal findings Hemoglobin A1c Today Z00.00 - Encounter for general adult medical examination without abnormal findings Vitamin D 25-OH Total Today Z00.00 - Encounter for general adult medical examination without abnormal findings Lipid Panel Today Z00.00 - Encounter for general adult medical examination without abnormal findings PT Evaluation and Treatment Today G89.29 - Other chronic pain, M25.511 - Pain in right shoulder Complete Blood Count no Diff Today Z00.00 - Encounter for general adult medical examination without abnormal findings TSH reflex Free T4 Today Z00.00 - Encounter for general adult medical examination without abnormal findings Referrals Open Access Screening Colonoscopy Referral Z12.11 - Encounter for screening for malignant neoplasm of colon, Z12.12 - Encounter for screening for malignant neoplasm of rectum
[2025-07-13 15:23] VITALS: BP 116/78; PULSE 78; RESP 18; TEMP 36.5; O2SAT 99; BMI 25.8
== END 2025-07-13 16:46 | disposition home or self-care (01) ==
LOC: HO.HMCH 15:03
PROVIDERS: PCP Physician Assistant; Visit Provider Internal Medicine
DX: Z00.00 Encounter for general adult medical examination without abnormal findings (principal); M25.511 Pain in right shoulder; G89.29 Other chronic pain; Q85.00 Neurofibromatosis, unspecified

== ENCOUNTER → 2025-07-13 15:02 | Outpatient (BNVA) | payer OTHER, SELFPAY | PROVIDERS: PCP Physician Assistant; Visit Provider Internal Medicine | DX: Z00.00 Encounter for general adult medical examination without abnormal findings (principal); M25.511 Pain in right shoulder; G89.29 Other chronic pain; Q85.00 Neurofibromatosis, unspecified; D10.0 Benign neoplasm of lip; D23.4 Other benign neoplasm of skin of scalp and neck; Z13.31 Encounter for screening for depression; Z13.39 Encounter for screening examination for other mental health and behavioral disorders | CPT/HCPCS: 96127; 99396 ==